=== PATIENT | female | born 1980 | race Caucasian/White ===

== ENCOUNTER 2018-03-08 20:58 | Emergency (ER) | payer BC ==
--- NOTE | 2018-03-08 21:38 | ED ---
Upper Extremity Pain - HPI Summary HPI Summary: 37 yr old female with left elbow, forearm pain. The patient fell when trying to use her child's hoverboard while she was putting it away. No LOC. Complains of pain to the left elbow, worse with supination. No other complaints. Pain is moderate. Right handed patient. - History of Current Complaint Stated Complaint: LEFT ARM INJURY Time Seen by Provider: 03/08/18 21:25 - Allergies/Home Medications Allergies/Adverse Reactions: Allergies Allergy/AdvReac Type Severity Reaction Status Date / Time No Known Allergies Allergy Verified 03/08/18 21:51 Home Medications: Home Medications Bupropion XL* [Wellbutrin XL *] 300 mg PO DAILY 03/08/18 [History Confirmed 05/19] Ibuprofen TAB* [Advil TAB*] 800 mg PO ONCE 03/08/18 [History Confirmed 03/08/18] PMH/Surg Hx/FS Hx/Imm Hx Previously Healthy: Yes Endocrine/Hematology History: Denies: Hx Sickle Cell Disease Cardiovascular History: Denies: Other Cardiovascular Problems/Disorders Respiratory History: Denies: Other Respiratory Problems/Disorders GI History: Denies: Other GI Disorders History: Denies: Other Problems/Disorders Musculoskeletal History: Denies: Other Musculoskeletal History Sensory History: Reports: Hx Contacts or Glasses - CONTACTS, Denies: Hx Cataracts, Hx Glaucoma, Hx Hearing Aid Opthamlomology History: Reports: Hx Contacts or Glasses - CONTACTS, Denies: Hx Cataracts, Hx Glaucoma Psychiatric History: Reports: Hx Anxiety, Hx Depression - JUST STARTED MEDICATION - Cancer History Hx Chemotherapy: No - Surgical History Hx Anesthesia Reactions: No Infectious Disease History: Denies: Traveled Outside the [place] in Last 30 Days - Family History Known Family History: Positive: None - Social History Substance Use Type: Reports: None Review of Systems Positive: Other - left elbow pain All Other Systems Reviewed And Are Negative: Yes Physical Exam Triage Information Reviewed: Yes Vital Signs Reviewed: Yes Appearance: Positive: Well-Appearing, No Pain Distress Skin: Positive: Warm Head/Face: Positive: Normal Head/Face Inspection Eyes: Positive: EOMI ENT: Positive: Normal ENT inspection Neck: Positive: Supple, Nontender Respiratory/Lung Sounds: Positive: Clear to Auscultation, Breath Sounds Present Cardiovascular: Positive: RRR. Negative: Murmur Abdomen Description: Positive: Nontender Musculoskeletal: Positive: Other - left elbow is tender to palpate, no STS. No tenderness over the shoulder, clavicle, wrist, hand left arm. No lacerations. Neuro vasc intact left hand. Neurological: Positive: Sensory/Motor Intact, Alert, Oriented to Person Place, Time, CN Intact II-III Psychiatric: Positive: Normal - Josh Coma Scale Best Eye Response: 4 - Spontaneous Best Motor Response: 6 - Obeys Commands Best Verbal Response: 5 - Oriented Coma Scale Total: 15 Procedures - Splinting Location: left elbow Hand-Made Type: orthoglass Splint: sugar-tong - double sugar tongue from the wrist to elbow and from elbow toward axilla and shoulder applied. Pre-Proc Neuro Vasc Exam: normal Post-Proc Neuro Vasc Exam: normal Diagnostics - Laboratory Lab Statement: Any lab studies that have been ordered have been reviewed, and results considered in the medical decision making process. - Radiology elbow forearm left Xray Interpretation: Positive (See Comments) - comminuted impacted radial head fracture Radiology Interpretation Completed By: Radiologist Course/Dx - Course Course Of Treatment: Case DW Dr Marx, orthopedic surgery, and he reviewed the xrays, and agrees with sugar tongue from wrist to elbo and from elbow up arm toward shoulder. He recommends follow up within the next two days. The patient wants to go to [place]. - Diagnoses Provider Diagnoses: Displaced fracture of head of left radius, Elbow fracture, left - Physician Notifications Discussed Care of Patient With: Bentley Orourke - agrees with splinting and follow up in next couple days. he reviewed the xrays. Time Discussed With Above Provider: 10:47 Discharge - Sign-Out/Discharge Documenting (check all that apply): Discharge/Admit/Transfer - Discharge Plan Condition: Good Disposition: HOME Prescriptions: Ibuprofen TAB* [Motrin TAB* 600 MG] 600 mg PO Q8H PRN #20 tab PRN Reason: Pain Patient Education Materials: Elbow Fracture (ED) Forms: *Work Release Referrals: Delia Hubbard NP [Primary Care Provider] - Bentley Orourke MD [Medical Doctor] - 1 Day - Billing Disposition and Condition Condition: GOOD Disposition: HOME
[2018-03-08 21:51] VITALS: BP 118/75
--- NOTE | 2018-03-08 22:00 | RAD ---
INDICATION: Left elbow pain after a fall COMPARISON: None. TECHNIQUE: 4 views left elbow and 2 views left forearm. REPORT: There is a comminuted and minimally impacted fracture of the left radial head. There is no significant joint effusion of the elbow. The remaining visualized bones are intact and appropriately aligned. IMPRESSION: Comminuted and minimally impacted fracture of the left radial head.
== END 2018-03-08 22:52 | disposition home or self-care (01) ==
LOC: UCCORT 20:58
DX: S52.122A Displaced fracture of head of left radius, initial encounter for closed fracture (principal); W17.89XA Other fall from one level to another, initial encounter; Y93.I9 Activity, other involving external motion; Y92.9 Unspecified place or not applicable
CPT/HCPCS: 99202; G0463